=== PATIENT | female | born 1995 | race African-American/Black ===

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

== ENCOUNTER 2017-08-25 21:20 | Emergency (ER) | payer MEDICAID ==
[~2017-08-25] VITALS: Ht 157.5 cm; Wt 54.7 kg
[~2017-08-25 21:20] MED LIST changes: +BENZ100 PO; -CEPH500C3 PO; -IBUP800T23 PO; -PHEN-426 PO
[2017-08-25 21:38] VITALS: BP 133/77; PULSE 112; RESP 18; TEMP 98; O2SAT 98
--- NOTE | 2017-08-25 22:40 | PD ---
HPI Chief Complaint: Musculoskeletal Complaint Time Seen by Provider: 22:34 Travel History International Travel<30 days: No Contact w/Intl Traveler<30days: No Traveled to known affect area: No History of Present Illness HPI 21-year-old female complains of left hand pain. Patient states that the pain started yesterday. Patient states that she probably injured herself yesterday. Patient states that the pain is sharp pain localized to dorsal aspect of the left hand. Patient denies any pain radiation. Patient complaint numbness sensation on the tip of the left thumb and left index finger. On a scale from 1 -10 the pain is a 7. Patient denies any chance of being . PFSH Past Medical History Developmental Delay: No Diminished Hearing: No Integumentary: Yes (ACNE, MRSA) Immunizations Current: Yes (utd) Seizures: Yes (ONE SEIZURE LAST WEEK (09/25)) ?: Unknown LMP: 08/10/17 : 0 Para: 0 Social History Alcohol Use: No Tobacco Use: No Substance Use: Yes (occasional marijuana use) Allergies-Medications (Allergen,Severity, Reaction): Coded Allergies: *MDRO Multi-Drug Resistant Organism (Unverified Adverse Reaction, Unknown , 08/25/17) MRSA (wound drainage) - 03/2014 Reported Meds & Prescriptions Reported Meds & Active Scripts Active Tessalon Perles (Benzonatate) 100 Mg Cap 200 Mg PO TID PRN Review of Systems General / Constitutional: No: Fever Eyes: No: Visual changes HENT: No: Headaches Cardiovascular: No: Chest Pain or Discomfort Respiratory: No: Shortness of Breath Gastrointestinal: No: Abdominal Pain Genitourinary: No: Dysuria Musculoskeletal: Positive: Pain Skin: No Rash Neurologic: No: Weakness Psychiatric: No: Depression Endocrine: No: Polydipsia Hematologic/Lymphatic: No: Easy Bruising Physical Exam Narrative GENERAL: Well-nourished, well-developed patient. SKIN: Focused skin assessment warm/dry. HEAD: Normocephalic. EYES: No scleral icterus. No injection or drainage. NECK: Supple, trachea midline. No JVD or lymphadenopathy. CARDIOVASCULAR: Regular rate and rhythm without murmurs, gallops, or rubs. RESPIRATORY: Breath sounds equal bilaterally. No accessory muscle use. GASTROINTESTINAL: Abdomen soft, non-tender, nondistended. MUSCULOSKELETAL: No cyanosis, or edema. BACK: Nontender without obvious deformity. No CVA tenderness. Patient has soft tissue swelling tenderness posterior aspect of the left hand at the base of the metacarpals. Full range of motion of the fingers. Mild decrease in light touch sensation tip of the left thumb and left index finger. Data Data Last Documented VS Vital Signs Date Time Temp Pulse Resp B/P (MAP) Pulse Ox O2 Delivery O2 Flow Rate FiO2 08/25/17 21:38 98.0 112 18 133/77 (95) 98 Orders Orders Hand, Complete ([id number]) (08/25/17 22:37) [facility] Medical Decision Making Medical Screen Exam Complete: Yes Emergency Medical Condition: Yes Interpretation(s) Last Impressions Hand X-Ray 08/25/172236 Signed Impressions: CONCLUSION: Negative examination Differential Diagnosis Differential diagnosis including contusion, fracture, dislocation. Narrative Course 21-year-old female with left hand injury. Ibuprofen 600 mg p.o. given. Velcro wrist splint left wrist. Diagnosis Primary Impression: Contusion of left wrist Qualified Codes: S60.212A - Contusion of left wrist, initial encounter Patient Instructions: General Instructions Additional Instructions: Ibuprofen for pain. Ice elevation. Follow up with orthopedist if persistent problem. Med/Other Pt SpecificInfo: Prescription(s) given Scripts Ibuprofen (Ibuprofen) 600 Mg Tab 600 MG PO TID for Pain, #30 TAB 0 Refills Prov: Josafat Mosley MD 08/25/17 Disposition: 01 DISCHARGE HOME Condition: Stable Josafat Mosley MD Aug 25, 2017 22:40
--- NOTE | 2017-08-25 22:54 | RADRPT ---
EXAM DATE: 08/25/2017 10:51 PM EDT AGE/SEX: 21 years / Female INDICATIONS: Left lateral hand pain for 24 hours with no known injury CLINICAL DATA: This is the patient's initial encounter. Patient reports that signs and symptoms have been present for 1 day and indicates a pain score of 9/10. MEDICAL/SURGICAL HISTORY: None. None. COMPARISON: None. FINDINGS: Bony structures are intact and in normal alignment. Osseous density is normal. Soft tissues are unre markable. No radiopaque foreign bodies seen. CONCLUSION: Negative examination Electronically signed by: Marck Roy MD 08/25/2017 10:53 PM EDT
[2017-08-25] MEDS ORDERED: IBUP-232 PO (23:15)
[2017-08-25] MEDS ORDERED: IBUPROFEN 600 MG TAB PO ONE (23:15)
[2017-08-25 23:31] VITALS: BP 123/75
== END 2017-08-25 23:33 | disposition home or self-care (01) ==
LOC: PHEFT 21:20
DX: S60.212A Contusion of left wrist, initial encounter (principal); X58.XXXA Exposure to other specified factors, initial encounter; F12.90 Cannabis use, unspecified, uncomplicated
CPT/HCPCS: 73130; 99283; L3908